=== PATIENT | female | born 1990 | race Caucasian/White ===

== ENCOUNTER 2020-08-16 13:18 | Emergency (ER) | payer OTHER ==
[~2020-08-16] VITALS: Ht 154.9 cm; Wt 50.3 kg
[~2020-08-16 13:18] MED LIST: CEFUROXIME500 MG PO; KETO10TA2 PO
[2020-08-16] MEDS ORDERED: PRENATABS FA T1 EACH (13:34)
== END 2020-08-16 20:04 | disposition home or self-care (01) ==
LOC: ER 13:18
DX: O20.8 Other hemorrhage in early pregnancy (principal); O23.31 Infections of other parts of urinary tract in pregnancy, first trimester; Z03.818 Encounter for observation for suspected exposure to other biological agents ruled out; Z3A.01 Less than 8 weeks gestation of pregnancy

== ENCOUNTER → 2020-09-18 | Outpatient (CLI) | payer OTHER ==
[~2020-09-18] MED LIST changes: +PRENATABS FA T1 EACH
== END | disposition home or self-care (01) ==
LOC: PRENATAL 13:00
PROVIDERS: ATTEND Obstetrics & Gynecology Maternal & Fetal Medicine
DX: Z36.89 Encounter for other specified antenatal screening (principal); O36.80X1 Pregnancy with inconclusive fetal viability, fetus 1; Z3A.12 12 weeks gestation of pregnancy

== ENCOUNTER 2020-10-05 00:06 | Emergency (ER) | payer OTHER ==
[~2020-10-05] VITALS: Ht 154.9 cm; Wt 49.9 kg
== END 2020-10-05 05:19 | disposition home or self-care (01) ==
LOC: ER 00:06
DX: O20.0 Threatened abortion (principal)

== ENCOUNTER → 2020-11-07 | Outpatient (CLI) | payer OTHER | END | disposition home or self-care (01) | LOC: PRENATAL 13:00 | PROVIDERS: ATTEND Obstetrics & Gynecology Maternal & Fetal Medicine | DX: O35.0XX1 Maternal care for (suspected) central nervous system malformation in fetus, fetus 1 (principal); O35.3XX1 Maternal care for (suspected) damage to fetus from viral disease in mother, fetus 1; O98.512 Other viral diseases complicating pregnancy, second trimester; Z36.89 Encounter for other specified antenatal screening; Z3A.19 19 weeks gestation of pregnancy ==

== ENCOUNTER → 2021-02-16 | Outpatient (CLI) | payer OTHER | END | disposition home or self-care (01) | LOC: PRENATAL 14:28 | PROVIDERS: ATTEND Obstetrics & Gynecology Maternal & Fetal Medicine | DX: O26.843 Uterine size-date discrepancy, third trimester (principal); O35.0XX1 Maternal care for (suspected) central nervous system malformation in fetus, fetus 1; Z36.89 Encounter for other specified antenatal screening; Z3A.34 34 weeks gestation of pregnancy ==

== ENCOUNTER 2021-02-23 19:26 | Inpatient (IN) | payer OTHER ==
[~2021-02-23] VITALS: Ht 154.9 cm; Wt 59.0 kg
[2021-02-24] MEDS ORDERED: IRON325 MG PO (11:02)
== END 2021-02-25 14:34 | disposition home or self-care (01) | DRG 833 ==
LOC: OBS/DEL 19:26 → LDR 02-24 10:39
PROVIDERS: ADMIT Student in an Organized Health Care Education/Training Program; ATTEND Student in an Organized Health Care Education/Training Program
PROC: 4A1HXFZ Monitoring of Products of Conception, Cardiac Rhythm, External Approach (ICD-10-PCS; principal; 2021-02-24)
DX: O47.03 False labor before 37 completed weeks of gestation, third trimester (principal); O99.013 Anemia complicating pregnancy, third trimester; D64.9 Anemia, unspecified; Z3A.34 34 weeks gestation of pregnancy

== ENCOUNTER 2021-03-21 14:30 | Inpatient (IN) | payer OTHER ==
[~2021-03-21] VITALS: Ht 154.9 cm; Wt 61.2 kg
[~2021-03-21 14:30] MED LIST changes: +IRON325 MG PO
== END 2021-03-25 14:00 | disposition home or self-care (01) | DRG 807 ==
LOC: LDR 03-23 04:49 → OB/GYN 03-23 04:49
PROVIDERS: ADMIT Student in an Organized Health Care Education/Training Program; ATTEND Student in an Organized Health Care Education/Training Program
PROC: 10E0XZZ Delivery of Products of Conception, External Approach (ICD-10-PCS; principal; 2021-03-23)
PROC: 4A1HXFZ Monitoring of Products of Conception, Cardiac Rhythm, External Approach (ICD-10-PCS; 2021-03-23)
DX: O70.1 Second degree perineal laceration during delivery (principal); Z37.0 Single live birth; Z3A.38 38 weeks gestation of pregnancy; Z20.822 Contact with and (suspected) exposure to COVID-19